=== PATIENT | female | born 1975 | race Caucasian/White ===

== ENCOUNTER 2016-12-16 11:17 | Inpatient (IN) | payer BC ==
[2016-12-16 12:29] LABS: Urine Bilirubin Negative (Negative); Urine Glucose Negative (Negative); Urine Nitrite Negative (Negative)
[2016-12-16 12:38] LABS: Hematocrit 38 % (35-47); Hemoglobin 12.7 g/dl (12.0-16.0); Mean Corpuscular HGB Conc 33 g/dl (31-36); Mean Corpuscular Hemoglobin 30 pg (27-31); Mean Corpuscular Volume 91 fL (80-97); Mean Platelet Volume 8 um3 (7.4-10.4); Red Blood Count 4.21 10^6/ul (4.0-5.4); Red Cell Distribution Width 13 % (10.5-15); White Blood Count 7.8 10^3/ul (3.5-10.8)
[2016-12-16 12:51] LABS: ALT 28 U/L (7-52); AST 25 U/L (13-39); Alkaline Phosphatase 78 U/L (34-104); Anion Gap 6 mmol/L (2-11); BUN/Creatinine Ratio 14.7 (8-20); Blood Urea Nitrogen 15 mg/dL (6-24); CO2 Carbon Dioxide 28 mmol/L (22-32); Calcium 9.1 mg/dL (8.6-10.3); Chloride 100 mmol/L (101-111); EGFR African American 77.2 (>60); Globulin 3.3 g/dL (2-4); Glucose 82 mg/dL (70-100); Potassium 3.8 mmol/L (3.5-5.0); Sodium 134 mmol/L (133-145); Total Protein 7.3 g/dL (6.4-8.9)
[2016-12-16 12:53] LABS: Acetaminophen < 15 mcg/mL; Alcohol < 10 mg/dL (<10); Salicylate < 2.50 mg/dL (<30)
[2016-12-16 12:54] LABS: Benzodiazepine Urine Screen None Detected (None Detect)
[2016-12-16 13:03] LABS: TSH (Thyroid Stimulating Horm) 3.92 mcIU/mL (0.34-5.60)
[2016-12-16] MEDS ORDERED: Al Hydrox/Mg Hydrox/Simet LIQ* 30 ML UDC PO PRN (16:18)
[2016-12-16] MEDS ORDERED: Acetaminophen TAB* 325 MG PO PRN (16:18)
[2016-12-16] MEDS: oxyCODONE/Acetamin 5/325 MG* TAB PO PRN (18:18)
[2016-12-16] MEDS: LORazepam TAB(*) 0.5 MG PO PRN (20:06)
[2016-12-16] MEDS ORDERED: Baclofen TAB* 10 MG PO PRN (21:00)
[2016-12-16] MEDS ORDERED: Zolpidem TAB* 10 MG PO SCH (21:00)
--- NOTE | 2016-12-16 23:00 | ED ---
Klaudia Pearson Erika, scribed for Ankit Patino MD on 12/16/16 at 1711 . Psychiatric Complaint - HPI Summary HPI Summary: Patient is a 41-year-old female presenting to the ED with a CC of depression. Patient reports that for the past 1-2 months, she has had increasing insomnia, loss of appetite, and episodes of night-eating - she states she has been waking up at night and binge eating. Patient states her Premarin was increased a few weeks ago, and she attributes her increasing depression to hormone fluctuations. Patient was seen by her PCP today who was concerned so recommended she come to the ED. Pt denies SI or plan. - History Of Current Complaint Chief Complaint: EDMentalHealth Time Seen by Provider: 12/16/16 11:40 Hx Obtained From: Patient Onset/Duration: Gradual Onset, Lasting Weeks, Still Present Timing: Constant Severity Initially: Mild Severity Currently: Moderate Character: Depressed Aggravating Factor(s): Recent Stress, Other - Premarin increase Alleviating Factor(s): Nothing Associated Signs And Symptoms: Positive: Sleep Disturbance, Appetite Change Related History: Positive For: Prior Psychiatric Issues Has Suicidal: Denies: Thoughts, With A Plan - Allergies/Home Medications Allergies/Adverse Reactions: Allergies Allergy/AdvReac Type Severity Reaction Status Date / Time Codeine Allergy Hives Verified 05/06/16 14:28 NSAIDs Allergy to protect Verified 05/06/16 14:28 kidney, per Dr Sagastume Penicillins Allergy Difficulty Verified 05/06/16 14:28 Breathing Home Medications: Home Medications Baclofen TAB* [Lioresal TAB*] 5 mg PO BEDTIME PRN 12/16/16 [History Confirmed ] Cyanocobalamin TAB* [Vitamin B12 TAB*] 1,000 mcg PO DAILY 12/16/16 [History Confirmed 12/16/16] LORazepam TAB(*) [Ativan 0.5 MG TAB (*)] 0.5 - 1 mg PO Q8H PRN 12/16/16 [ History Confirmed 12/16/16] Multivitamins/Minerals TAB* [Theragran/minerals TAB*] 1 tab PO DAILY 12/16/16 [ History Confirmed 12/16/16] Sertraline* [Zoloft*] 150 mg PO DAILY 12/16/16 [History Confirmed 12/16/16] oxyCODONE/Acetamin 5/325 MG* [Percocet 5/325 TAB*] 1 tab PO Q8H PRN 12/16/16 [ History Confirmed 12/16/16] PMH/Surg Hx/FS Hx/Imm Hx Endocrine/Hematology History: Denies: Hx Anticoagulant Therapy, Hx Diabetes, Hx Thyroid Disease Cardiovascular History: Denies: Hx Hypertension, Hx Pacemaker/ICD Respiratory History: Denies: Hx Asthma, Hx Chronic Obstructive Pulmonary Disease (COPD) GI History: Reports: Hx Ulcer - Questionable Denies: Other GI Disorders History: Reports: Hx Renal Disease - one kidney, Other Problems/Disorders - BORN WITH SOLITARY KIDNEY Sensory History: Denies: Hx Hearing Aid Neurological History: Denies: Hx Dementia, Hx Seizures Psychiatric History: Denies: Hx Panic Disorder, Hx Substance Abuse - Surgical History Surgery Procedure, Year, and Place: hysterectomy, 2 c-sections, hand surg r hand x's 2 - Immunization History Date of Tetanus Vaccine: [facility] Date of Influenza Vaccine: [facility] Infectious Disease History: Denies: Hx Clostridium Difficile, Hx Hepatitis, Hx Human Immunodeficiency Virus (HIV), Hx Shingles, Hx Tuberculosis, History Other Infectious Disease, Traveled Outside the [place] in Last 30 Days - Family History Known Family History: Positive: Cardiac Disease, Hypertension - Social History Alcohol Use: Rare Hx Substance Use: Yes Substance Use Type: Reports: Marijuana Substance Use Comment - Amount & Last Used: occasional Hx Tobacco Use: Yes Smoking Status (MU): Former Smoker Have You Smoked in the Last Year: Yes Review of Systems Gastrointestinal: Other - binge eating, loss of appetite Psychological: Other - difficulty sleeping Positive: Depressed All Other Systems Reviewed And Are Negative: Yes Physical Exam Triage Information Reviewed: Yes Vital Signs On Initial Exam: Initial Vitals Temp Pulse Resp BP Pulse Ox 98.1 F 86 20 136/74 99 12/16/16 11:22 12/16/16 11:22 12/16/16 11:22 12/16/16 11:22 12/16/16 11:22 Vital Signs Reviewed: Yes Appearance: Positive: Well-Appearing, No Pain Distress Skin: Positive: Warm, Skin Color Reflects Adequate Perfusion, Dry Head/Face: Positive: Normal Head/Face Inspection Eyes: Positive: Normal ENT: Positive: Normal ENT inspection Neck: Positive: Supple, Nontender Respiratory/Lung Sounds: Positive: Clear to Auscultation, Breath Sounds Present Cardiovascular: Positive: RRR Abdomen Description: Positive: Nontender, Soft Bowel Sounds: Positive: Present Musculoskeletal: Positive: Normal Neurological: Positive: Normal Psychiatric: Positive: Affect/Mood Appropriate - [place] Coma Scale Coma Scale Total: 15 Diagnostics - Vital Signs Vital Signs Temp Pulse Resp BP Pulse Ox 12/16/16 14:07 99.0 F 84 16 130/67 94 12/16/16 11:34 98.1 F 86 20 136/74 99 12/16/16 11:22 98.1 F 86 20 136/74 99 - Laboratory Lab Results: Lab Results 12/16/16 12/16/16 12/16/16 Range/Units 11:43 11:43 12:00 WBC 7.8 (3.5-10.8) 10^3/ul RBC 4.21 (4.0-5.4) 10^6/ul Hgb 12.7 (12.0-16.0) g/dl Hct 38 (35-47) % MCV 91 (80-97) fL MCH 30 (27-31) pg MCHC 33 (31-36) g/dl RDW 13 (10.5-15) % Plt Count 222 (150-450) 10^3/ul MPV 8 (7.4-10.4) um3 Neut % (Auto) 64.0 (38-83) % Lymph % (Auto) 23.4 L (25-47) % [place] % (Auto) 7.9 (1-9) % Eos % (Auto) 4.0 (0-6) % Baso % (Auto) 0.7 (0-2) % Absolute Neuts (auto) 5.0 (1.5-7.7) 10^3/ul Absolute Lymphs (auto) 1.8 (1.0-4.8) 10^3/ul Absolute Monos (auto) 0.6 (0-0.8) 10^3/ul Absolute Eos (auto) 0.3 (0-0.6) 10^3/ul Absolute Basos (auto) 0.1 (0-0.2) 10^3/ul Absolute Nucleated RBC 0 10^3/ul Nucleated RBC % 0 Sodium (133-145) mmol/L Potassium (3.5-5.0) mmol/L Chloride (101-111) mmol/L Carbon Dioxide (22-32) mmol/L Anion Gap (2-11) mmol/L BUN (6-24) mg/dL Creatinine (0.51-0.95) mg/dL Est GFR ( Amer) (>60) Est GFR (Non-Af Amer) (>60) BUN/Creatinine Ratio (8-20) Glucose (70-100) mg/dL Calcium (8.6-10.3) mg/dL Total Bilirubin (0.2-1.0) mg/dL AST (13-39) U/L ALT (7-52) U/L Alkaline Phosphatase (34-104) U/L Total Protein (6.4-8.9) g/dL Albumin (3.2-5.2) g/dL Globulin (2-4) g/dL Albumin/Globulin Ratio (1-3) TSH (0.34-5.60) mcIU/mL Urine Color Yellow Urine Appearance Clear Urine pH 5.0 (5-9) Ur Specific [place] 1.015 (1.010-1.030) Urine Protein Negative (Negative) Urine Ketones Negative (Negative) Urine Blood Negative (Negative) Urine Nitrate Negative (Negative) Urine Bilirubin Negative (Negative) Urine Urobilinogen Negative (Negative) Ur Leukocyte Esterase Negative (Negative) Urine Glucose Negative (Negative) Salicylates (<30) mg/dL Urine Opiates Screen Presumptive positive H (None Detect) Acetaminophen mcg/mL Ur Barbiturates Screen None detected (None Detect) Ur Phencyclidine Scrn None detected (None Detect) Ur Amphetamines Screen None detected (None Detect) U Benzodiazepines Scrn None detected (None Detect) Urine Cocaine Screen None detected (None Detect) U Cannabinoids Screen None detected (None Detect) Serum Alcohol (<10) mg/dL 12/16/16 Range/Units 12:00 WBC (3.5-10.8) 10^3/ul RBC (4.0-5.4) 10^6/ul Hgb (12.0-16.0) g/dl Hct (35-47) % MCV (80-97) fL MCH (27-31) pg MCHC (31-36) g/dl RDW (10.5-15) % Plt Count (150-450) 10^3/ul MPV (7.4-10.4) um3 Neut % (Auto) (38-83) % Lymph % (Auto) (25-47) % [place] % (Auto) (1-9) % Eos % (Auto) (0-6) % Baso % (Auto) (0-2) % Absolute Neuts (auto) (1.5-7.7) 10^3/ul Absolute Lymphs (auto) (1.0-4.8) 10^3/ul Absolute Monos (auto) (0-0.8) 10^3/ul Absolute Eos (auto) (0-0.6) 10^3/ul Absolute Basos (auto) (0-0.2) 10^3/ul Absolute Nucleated RBC 10^3/ul Nucleated RBC % Sodium 134 (133-145) mmol/L Potassium 3.8 (3.5-5.0) mmol/L Chloride 100 L (101-111) mmol/L Carbon Dioxide 28 (22-32) mmol/L Anion Gap 6 (2-11) mmol/L BUN 15 (6-24) mg/dL Creatinine 1.02 H (0.51-0.95) mg/dL Est GFR ( Amer) 77.2 (>60) Est GFR (Non-Af Amer) 60.0 (>60) BUN/Creatinine Ratio 14.7 (8-20) Glucose 82 (70-100) mg/dL Calcium 9.1 (8.6-10.3) mg/dL Total Bilirubin 0.30 (0.2-1.0) mg/dL AST 25 (13-39) U/L ALT 28 (7-52) U/L Alkaline Phosphatase 78 (34-104) U/L Total Protein 7.3 (6.4-8.9) g/dL Albumin 4.0 (3.2-5.2) g/dL Globulin 3.3 (2-4) g/dL Albumin/Globulin Ratio 1.2 (1-3) TSH 3.92 (0.34-5.60) mcIU/mL Urine Color Urine Appearance Urine pH (5-9) Ur Specific [place] (1.010-1.030) Urine Protein (Negative) Urine Ketones (Negative) Urine Blood (Negative) Urine Nitrate (Negative) Urine Bilirubin (Negative) Urine Urobilinogen (Negative) Ur Leukocyte Esterase (Negative) Urine Glucose (Negative) Salicylates < 2.50 (<30) mg/dL Urine Opiates Screen (None Detect) Acetaminophen < 15 mcg/mL Ur Barbiturates Screen (None Detect) Ur Phencyclidine Scrn (None Detect) Ur Amphetamines Screen (None Detect) U Benzodiazepines Scrn (None Detect) Urine Cocaine Screen (None Detect) U Cannabinoids Screen (None Detect) Serum Alcohol < 10 (<10) mg/dL Result Diagrams: 12/16/16 12:00 12/16/16 12:00 Lab Statement: Any lab studies that have been ordered have been reviewed, and results considered in the medical decision making process. Course/Dx - Course Course Of Treatment: Medically cleared for MHU evaluation at 13:32. - Differential Dx/Clinical Impression Provider Diagnosis: Depression Discharge - Discharge Plan Condition: Stable [place] [place] The documentation as recorded by the Klaudia pierce Erika accurately reflects the service I personally performed and the decisions made by , Ankit Patino MD.
[2016-12-17] MEDS: oxyCODONE/Acetamin 5/325 MG* TAB PO PRN ×2 (08:41→16:59)
[2016-12-17] MEDS: Conjugated Estrogens TAB* 0.3 MG TAB PO SCH (08:42)
[2016-12-17] MEDS: Cyanocobalamin TAB* 500 MCG PO SCH (08:42)
[2016-12-17] MEDS: Vitamin THERAPEUTIC TAB PO SCH (08:42)
[2016-12-17] MEDS: Sertraline* 50 MG TAB PO SCH (08:42)
[2016-12-17] MEDS: LORazepam TAB(*) 0.5 MG PO PRN ×2 (09:40→20:14)
[2016-12-17] MEDS ORDERED: hydrOXYzine HCL TAB* 10 MG PO PRN (11:51)
[2016-12-17] MEDS ORDERED: diPHENhydraMINE PO* 50 MG PO PRN (11:51)
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
--- NOTE | 2016-12-17 13:33 | PN ---
MHU: Group Therapy Note - Service Type Service Type: 25077 Group Psychotherapy - Cognitive Behavioral Group Therapy ( CBT):Patient was attentive and participatory in CBT programming this morning, and remained in good behavioral control. Patient expressed positive insights regarding relevant treatment interventions and goals.
[2016-12-17] MEDS ORDERED: Nicotine Inhaler* 10 MG AMP INH PRN (17:46)
[2016-12-17] MEDS ORDERED: Zolpidem TAB* 10 MG PO ONE (23:00)
[2016-12-18] MEDS: oxyCODONE/Acetamin 5/325 MG* TAB PO PRN ×2 (03:04→11:07)
[2016-12-18 07:55] VITALS: BP 116/72
[2016-12-18] MEDS: Cyanocobalamin TAB* 500 MCG PO SCH (08:24)
[2016-12-18] MEDS: Vitamin THERAPEUTIC TAB PO SCH (08:26)
[2016-12-18] MEDS: Sertraline* 50 MG TAB PO SCH (08:26)
[2016-12-18] MEDS: Conjugated Estrogens TAB* 0.3 MG TAB PO SCH (08:27)
[2016-12-18] MEDS: LORazepam TAB(*) 0.5 MG PO PRN (10:00)
--- NOTE | 2016-12-18 14:05 | DS ---
Subjective - Subjective Service Types: [address] [facility] Day Mgmt simple under 30 min Discharge Date: 12/18/16 Subjective: Rebecca reported doing much better: "I needed this!!" She notes big reduction in distress, dysphoria, and anxiety. She slept again, and feels recovered. She declined further care, and requested release, affirming she is safe, free of any ideas of self harm, and back to coping. She intends to continue counseling at her PMD office and declines referrals to mental health clinic or substance counseling. She says family is aware of the way she uses pills an is monitoring it, and says that's adequate. She says she sees no barriers to routine care or emergency help if needed. She agreed to avoid Ativan and asked for a Rx. of hydroxyzine for anxiety. Objective - Appearance Appearance: Obese Hygiene: Normal Grooming: Well Kept - Behavior Psychomotor Activities: Normal - Attitude and Relatedness Attitude and Relatedness: Superficially Cooperative Eye Contact: Good - Speech Quality: Unpressured Latencies: Normal Quantity: Appropriate - Mood Patient's Decription of Mood: "Good" - Affect Observed Affect: Non-labile Affect Consistent with: Euthymia - Thought Process Patient's Thought Process: Coherent, Goal Directed Thought Content: No Passive Wish, No Suicidal Planning, No Homicidal Ideation, No Paranoid Ideation - Sensorium Experiencing Hallucinations: No, Sensorium is Clear - Level of Consciousness Level of Consciousness: Alert - Impulse Control Impulse Control: Intact - Insight and Judgement Insight and Judgement: Fair Treatment Course & Assessment Clinical Course & Impression: Third psychiatric hospitalization for this 41-year-old female with chronic vulnerability to mood instability and anxiety, chronic reliance on narcotic analgesics and apparent periodic reliance of benzodiazepines. She presented in distress with impaired coping, elevated anxiety, dysphoria, mood lability, and some urges to self-harm in a setting of insomnia and recent conflict with her . 12/18/16 Clear for release. Rebecca stabilized here. Clinically she had rapid and progressive improvement. Her acute distress and coping impairment are corrected, anxiety and dysphoria much lower. She has been safe on checks and consistently free of suicidal ideation or ongoing self harm urges. Her crisis appears to have been in the context of relational stress, insomnia, with some medication and/or substance induced effect.. Medication management continued the outpatient medication regimen, but stops Ativan based on unacceptable risk profile (I intended to stop it as inpatient, but inadvertently left a PRN order active and pt. requested and received a dose 5/5 in a.m.) We provided hydroxyzine PRN anxiety. We planned psychological testing but Rebecca found the MMPI anxiety provoking. She had little acknowledgment of substance abuse and did not accept recommendation to make it a focus of treatment. She capably requests release. Risk concern centered on self harm ideation and is corrected. Rebecca is at chronic above average risk for suicide based on her conditions, but at this time acute risk is assessed as low based on her benign behavior and ideation, low symptom burden, and absence of current impairment. Inappropriate medication use or illicit drug use can increase acute risk. Clear for Discharge: Adequate Clinical Respons, Acceptable Safety Profile, Low Utility of Inpt Care Inpatient DSM-IV Dx: Depressed, anxiety state not otherwise specified, opioid use disorder not otherwise specified, benzodiazepine use disorder not otherwise specified. Discharge Planning - Discharge Planning Discharge Plan: Outpatient Follow Up Recommendations for Continuing Care: Medication Management, Substance Abuse Counseling, Primary Care Followup, Specialty Followup - consider Pain Management and Substance abuse treatment referrals Medications: Current Medications Baclofen (Lioresal Tab*) 5 mg PO BEDTIME PRN PRN Reason: SPASMS-MUSCLE Last Admin: 12/16/16 21:13 Dose: 5 mg Cyanocobalamin (Vitamin B12 Tab*) 1,000 mcg PO DAILY [facility] Last Admin: 12/18/16 08:24 Dose: 1,000 mcg Estrogens Conjugated (Premarin Tab*) 0.9 mg PO DAILY [facility] Last Admin: 12/18/16 08:27 Dose: 0.9 mg Hydroxyzine HCl (Atarax Tab*) 10 mg PO Q6H PRN PRN Reason: ANXIETY Multivitamins (Theragran Tab*) 1 tab PO DAILY [facility] Last Admin: 12/18/16 08:26 Dose: 1 tab Nicotine (Nicotine Inhaler*) 10 mg INH Q2H PRN PRN Reason: CRAVING Oxycodone/Acetaminophen (Percocet 5/325 Tab*) 1 tab PO Q8H PRN PRN Reason: PAIN Last Admin: 12/18/16 11:07 Dose: 1 tab Sertraline HCl (Zoloft*) 200 mg PO DAILY [facility] Last Admin: 12/18/16 08:26 Dose: 150 mg Discharge Planning: Prescriptions provided for discharge [x] Yes hydroxyzine Follow up care details as per social work arrangements. Patient response to discharge plan: [x] eager for discharge [] agreeable with discharge plan [] ambivalent about discharge [] disagrees with discharge today
[2016-12-18] MEDS ORDERED: Sertraline* 100 MG TAB PO SCH (14:26)
== END 2016-12-18 15:05 | disposition home or self-care (01) | DRG 754 ==
LOC: ED 11:17 → BSU 17:38
PROVIDERS: ADMIT Psychiatry & Neurology Psychiatry; ATTEND Psychiatry & Neurology Psychiatry
PROC: GZHZZZZ Group Psychotherapy (ICD-10-PCS; principal; 2016-12-17)
PROC: GZ58ZZZ Individual Psychotherapy, Cognitive-Behavioral (ICD-10-PCS; 2016-12-17)
DX: F32.9 Major depressive disorder, single episode, unspecified (principal); Q60.0 Renal agenesis, unilateral; F41.9 Anxiety disorder, unspecified; F11.90 Opioid use, unspecified, uncomplicated; F13.90 Sedative, hypnotic, or anxiolytic use, unspecified, uncomplicated; G47.00 Insomnia, unspecified; Z88.6 Allergy status to analgesic agent; Z88.0 Allergy status to penicillin; Z88.8 Allergy status to other drugs, medicaments and biological substances; Z90.710 Acquired absence of both cervix and uterus; Z82.49 Family history of ischemic heart disease and other diseases of the circulatory system; Z87.891 Personal history of nicotine dependence; Z72.89 Other problems related to lifestyle; G89.29 Other chronic pain; M54.9 Dorsalgia, unspecified; E66.9 Obesity, unspecified; Z68.34 Body mass index [BMI] 34.0-34.9, adult
CPT/HCPCS: 36415; 80053; 80307; 80320; 80329; 81003; 84443; 85025; 90853; 99222; 99238; A9270-GY; G0480

== ENCOUNTER 2017-08-05 16:41 | Emergency (ER) | payer BC ==
[2017-08-05] MEDS ORDERED: oxyCODONE/Acetamin 5/325 MG* TAB PO ONE (17:34)
--- NOTE | 2017-08-05 18:19 | RAD ---
INDICATION: Right calf and swelling. COMPARISON: None TECHNIQUE: Duplex interrogation of the Lowerextremity was performed. FINDINGS: Deep veins: The common femoral, great saphenous, profunda femoris, proximal, mid, and distal deep femoral, popliteal, posterior tibial, and peroneal veins are patent. There is normal compressibility, augmentation, and phasic flow. Superficial veins: There are no findings of superficial thrombophlebitis. Popliteal fossa:There is no evidence of a popliteal cyst. Soft tissues:There are no soft tissue abnormalities. IMPRESSION: Normal examination. No evidence of deep venous thrombosis
[2017-08-05 18:47] VITALS: BP 125/85
--- NOTE | 2017-08-21 00:49 | ED ---
Hailey Pearson Gabriel, scribed for Ruddy Freitas MD on 08/05/17 at 1729 . Lower Extremity - HPI Summary HPI Summary: This patient is a 42 year old F presenting to [facility] with a chief complaint of RLE pain after being sent from her PCP. The patient rates the pain 9/10 in severity. Patient denies injury and swelling. Patient states she had not been any recent long trips - History of Current Complaint Chief Complaint: EDExtremityLower Stated Complaint: RT LOWER EXTREMITY PAIN & SWELLING Time Seen by Provider: 08/05/17 17:23 Hx Obtained From: Patient Mechanism Of Injury: Other - none Onset/Duration: Still Present Severity Initially: Moderate Severity Currently: Moderate Pain Intensity: 9 Pain Scale Used: 0-10 Numeric Timing: Constant Location: Is Diffuse - in RLE - Allergies/Home Medications Allergies/Adverse Reactions: Allergies Allergy/AdvReac Type Severity Reaction Status Date / Time Codeine Allergy Hives Verified 08/05/17 16:58 NSAIDs Allergy to protect Verified 08/05/17 16:58 kidney, per Dr Sagastume Penicillins Allergy Difficulty Verified 08/05/17 16:58 Breathing PMH/Surg Hx/FS Hx/Imm Hx Previously Healthy: No Endocrine/Hematology History: Denies: Hx Anticoagulant Therapy, Hx Diabetes, Hx Thyroid Disease Cardiovascular History: Denies: Hx Hypertension, Hx Pacemaker/ICD Respiratory History: Denies: Hx Asthma, Hx Chronic Obstructive Pulmonary Disease (COPD) GI History: Reports: Hx Ulcer - Questionable Denies: Other GI Disorders History: Reports: Hx Renal Disease - one kidney, Other Problems/Disorders - BORN WITH SOLITARY KIDNEY Musculoskeletal History: Reports: Hx Arthritis - Pt. reports arthritis in the lower back, Hx Back Problems - Chronic Back Pain Sensory History: Reports: Hx Contacts or Glasses Denies: Hx Hearing Aid Opthamlomology History: Reports: Hx Contacts or Glasses Neurological History: Denies: Hx Dementia, Hx Seizures Psychiatric History: Reports: Hx Anxiety, Hx Depression, Hx Inpatient Treatment , Hx Community Mental Health Tx Denies: Hx Eating Disorder, Hx Panic Disorder, Hx Suicide Attempt, Hx of Violent Episodes Against Others, Hx Substance Abuse - Surgical History Surgery Procedure, Year, and Place: hysterectomy, 2 c-sections, hand surg r hand x's 2 - Immunization History Date of Tetanus Vaccine: ukn Date of Influenza Vaccine: ukn Infectious Disease History: No Infectious Disease History: Denies: Hx Clostridium Difficile, Hx Hepatitis, Hx Human Immunodeficiency Virus (HIV), Hx Shingles, Hx Tuberculosis, History Other Infectious Disease, Traveled Outside the [place] in Last 30 Days - Family History Known Family History: Positive: Cardiac Disease, Hypertension - Social History Alcohol Use: Rare Hx Substance Use: Yes Substance Use Type: Reports: Marijuana Substance Use Comment - Amount & Last Used: occasional Hx Tobacco Use: Yes Smoking Status (MU): Former Smoker Type: Cigarettes Have You Smoked in the Last Year: No Review of Systems Negative: Fever Positive: Other - RLE pain . Negative: Edema All Other Systems Reviewed And Are Negative: Yes Physical Exam - Summary Physical Exam Summary: Appearance: Well appearing, no pain distress Skin: warm, dry, reflects adequate perfusion Head/face: normal Eyes: EOMI, ROBERT ENT: normal Neck: supple, non-tender Respiratory: CTA, breath sounds present Cardiovascular: RRR, pulses symmetrical Abdomen: non-tender, soft Bowel: present Musculoskeletal: strength/ROM intact. Positive homans sign, tenderness in upper calf without redness or palpable cord Neuro: normal, sensory motor intact, A&Ox3 Triage Information Reviewed: Yes Vital Signs On Initial Exam: Initial Vitals Temp Pulse Resp BP Pulse Ox 97.4 F 76 18 149/100 97 08/05/17 16:55 08/05/17 16:55 08/05/17 16:55 08/05/17 16:55 08/05/17 16:55 Vital Signs Reviewed: Yes Diagnostics - Vital Signs Vital Signs Temp Pulse Resp BP Pulse Ox 08/05/17 16:55 97.4 F 76 18 149/100 97 - Laboratory Lab Statement: Any lab studies that have been ordered have been reviewed, and results considered in the medical decision making process. - Additional Comments Diagnostic Additional Comments: Venous Doppler study reveals, per radiologist, Normal examination. No evidence of deep venous thrombosis ED physician has reviewed this radiology report. Lower Extremity Course/Dx - Course Course Of Treatment: NL vasc exam. Appears musculoskeletal. Tx symptomatically. - Diagnoses Provider Diagnoses: Pain in left lower leg Discharge - Discharge Plan Condition: Good Disposition: HOME Patient Education Materials: Leg Pain (ED) Referrals: Edd Patterson MD [Primary Care Provider] - Additional Instructions: Ice, stretching exercises. Use your prescribed flexeril or percocet. See your chiropractor in the morning for treatment. Return with fever, redness, worse or other concerns as discussed. The documentation as recorded by the Hailey pierce Gabriel accurately reflects the service I personally performed and the decisions made by me, Ruddy Freitas MD.
== END 2017-08-05 18:47 | disposition home or self-care (01) ==
LOC: ED 16:41
DX: M79.662 Pain in left lower leg (principal); Z87.891 Personal history of nicotine dependence; Z88.0 Allergy status to penicillin
CPT/HCPCS: 99282; A9270-GY

== ENCOUNTER 2019-04-03 16:40 | Emergency (ER) | payer BC ==
[2019-04-03 16:58] VITALS: BP 134/89
[2019-04-03] MEDS ORDERED: cefTRIAXone VIAL(*) 1,000 MG VIAL IM ONE (17:48)
[2019-04-03] MEDS ORDERED: Lidocaine 1% MPF ** 5 ML VIAL IM ONE (17:50)
--- NOTE | 2019-04-03 18:03 | UC ---
Abdominal Pain Female HPI - HPI Summary HPI Summary: 43 yo female with UTI symptoms x days now with left flank pain intermittent feels like when she had pyelo has only one kidney no f/c no n/v no vaginal d/c - History of Current Complaint Chief Complaint: UCGU Stated Complaint: FLANK PAIN Time Seen by Provider: 04/03/19 17:30 Hx Obtained From: Patient Onset/Duration: Gradual Onset, Lasting Days Timing: Constant Severity Initially: Mild Severity Currently: Moderate Pain Intensity: 7 - intermittent Pain Scale Used: 0-10 Numeric Location: Other - left flank Character: Colicy Aggravating Factor(s): Nothing Alleviating Factor(s): Nothing Associated Signs and Symptoms: Positive: Urinary Symptoms. Negative: Diaphoresis, Fever, Cough, Chest Pain, Dizzy, Constipation, Blood in Stool, Decreased Appetite, Vaginal Bleeding, Vaginal Discharge, Nausea, Vomiting, Diarrhea Allergies/Adverse Reactions: Allergies Allergy/AdvReac Type Severity Reaction Status Date / Time codeine Allergy Hives Verified 04/03/19 16:59 NSAIDS (Non-Steroidal Allergy See Comment Verified 04/03/19 16:59 Anti-Inflamma Penicillins Allergy Difficulty Verified 04/03/19 16:59 Breathing Home Medications: Home Medications ALPRAZolam [Xanax] 1 tab PO DAILY PRN 04/03/19 [History Confirmed 04/03/19] Methylphenidate HCl [Methylphenidate ER] 1 tab PO DAILY 04/03/19 [History Confirmed 04/03/19] Tizanidine HCl 1 tab PO DAILY PRN 04/03/19 [History Confirmed 04/03/19] Topiramate [Trokendi Xr] 100 mg PO BID 04/03/19 [History Confirmed 04/03/19] PMH/Surg Hx/FS Hx/Imm Hx Previously Healthy: Yes GI/ History: Kidney Stones, Other - pyelo Other History Of: Negative For: Anticoagulant Therapy - Surgical History Surgical History: Yes Surgery Procedure, Year, and Place: hysterectomy, 2 c-sections, hand surg r hand x's 2 - Family History Known Family History: Positive: Cardiac Disease, Hypertension - Social History Alcohol Use: Rare Alcohol Amount: 3-5 glasses of wine per week Substance Use Type: Marijuana Substance Use Comment - Amount & Last Used: occasional Smoking Status (MU): Light Every Day Tobacco Smoker Type: Cigarettes Amount Used/How Often: less than 10 a day Have You Smoked in the Last Year: No When Did the Patient Quit Smoking/Using Tobacco: September 2015 Household Exposure Type: Cigarettes - Immunization History Most Recent Influenza Vaccination: 2013 Most Recent Tetanus Shot: UP TO DATE Most Recent Pneumonia Vaccination: Never Review of Systems All Other Systems Reviewed And Are Negative: Yes Constitutional: Positive: Negative Skin: Positive: Negative Eyes: Positive: Negative ENT: Positive: Negative Respiratory: Positive: Negative Gastrointestinal: Positive: Other - left flank pain Genitourinary: Positive: Dysuria, Frequency Motor: Positive: Negative Neurovascular: Positive: Negative Musculoskeletal: Positive: Negative Neurological: Positive: Negative Psychological: Positive: Negative Physical Exam Triage Information Reviewed: Yes Appearance: Well-Appearing, No Pain Distress, Well-Nourished Vital Signs: Initial Vital Signs Temp 96.8 F 04/03/19 16:52 Pulse 73 04/03/19 16:52 Resp 18 04/03/19 16:52 BP 134/89 04/03/19 16:52 Pulse Ox 97 04/03/19 16:52 Vital Signs Reviewed: Yes Eyes: Positive: Conjunctiva Clear ENT: Positive: Hearing grossly normal. Negative: Nasal congestion, Nasal drainage, Trismus, Muffled voice, Hoarse voice Dental Exam: Normal Neck: Positive: Supple, Nontender Respiratory: Positive: Lungs clear, Normal breath sounds, No respiratory distress, No accessory muscle use Cardiovascular: Positive: RRR, No Murmur, Pulses Normal Abdomen Description: Positive: Nontender, No Organomegaly, CVA Tenderness (L) Bowel Sounds: Positive: Present Musculoskeletal: Positive: ROM Intact, No Edema Neurological: Positive: Alert Psychological Exam: Normal Skin Exam: Normal Diagnostics - Laboratory Lab Results: UA (-) Spec Grav <1.005 Re-Evaluation - Re-Evaluation First Eval Change: Unchanged Abd Pain Female Course/Dx - Course Course Of Treatment: Given history will cover with antibiotics for possible pyelo - Differential Dx/Diagnosis Provider Diagnosis: Left flank pain Discharge - Sign-Out/Discharge Documenting (check all that apply): Patient Departure All imaging exams completed and their final reports reviewed: No Studies - Discharge Plan Condition: Stable Disposition: HOME Prescriptions: Cephalexin CAP* [Keflex CAP*] 500 mg PO TID #21 cap Patient Education Materials: Flank Pain (ED) Referrals: Jackie Bell MD [Primary Care Provider] - 2 Days Additional Instructions: a urine culture is pending due to your history and exam we will treat you for a kidney infection to ER for fever>101, vomiting or increased pain RECHECK IN 2 days if not better (your MD, here or ER) - Billing Disposition and Condition Condition: STABLE Disposition: Home
--- NOTE | 2019-04-05 16:47 | UC ---
- Progress Note Progress Note: urine culture final - neg no change edgard 04/05/19 Course/Dx - Diagnoses Provider Diagnoses: Left flank pain Discharge ED - Sign-Out/Discharge Documenting (check all that apply): Post-Discharge Follow Up All imaging exams completed and their final reports reviewed: No Studies - Discharge Plan Condition: Stable Disposition: HOME Prescriptions: Cephalexin CAP* [Keflex CAP*] 500 mg PO TID #21 cap Patient Education Materials: Flank Pain (ED) Referrals: Jackie Bell MD [Primary Care Provider] - 2 Days Additional Instructions: a urine culture is pending due to your history and exam we will treat you for a kidney infection to ER for fever>101, vomiting or increased pain RECHECK IN 2 days if not better (your MD, here or ER) - Billing Disposition and Condition Condition: STABLE Disposition: Home
== END 2019-04-03 18:40 | disposition home or self-care (01) ==
LOC: UCEAST 16:40
DX: R10.9 Unspecified abdominal pain (principal); F17.210 Nicotine dependence, cigarettes, uncomplicated; Z88.5 Allergy status to narcotic agent; Z88.0 Allergy status to penicillin
CPT/HCPCS: 81003; 87086; 96372; 99212; G0463; J0696

== ENCOUNTER 2019-08-05 15:23 | Emergency (ER) | payer BC ==
--- NOTE | 2019-08-05 15:45 | ED ---
Back Pain - HPI Summary HPI Summary: This pt is a 44 y/o female presenting to [facility] c/o acute on chronic lower back pain today s/p fall. Pt reports she was outside when she slipped and fell forward on the snow. Denies LOC. Pt then continued to work outside for 1 hour after the fall. After she finished she went inside her home and began to feel her feet became painful and then her legs became numb at around 1330 today. Pt then went to lay down and took Naproxen and Percocet. Currently she notes lower back pain, bilateral leg tingling and numbness, as well as right groin pain radiating down her leg up to the inner side of her thigh. Pt reports right hip pain and lower back pain aggravated with ambulation. Denies fever, chills, urinary or bowel incontinence, saddle anesthesia. Denies hx of DM. No hx of IVDU. PMHx: left sided sciatica, born with 1 kidney. Pt takes Sertraline 200 mg once a day for back pain, topamax 50 mg BID for headache, 0.25 mg Xanax PRN, 5/325 Percocet TID for chronic back pain. Pt admits to smoking cigarettes, occasional alcohol and marijuana use. Allergic to Penicillin (reaction of anaphylaxis) and codeine (reaction of rash). Medications reviewed. Allergies noted. - History of Current Complaint Stated Complaint: BACK PAIN PER PT Time Seen by Provider: 08/05/19 15:34 Hx Obtained From: Patient Onset/Duration: Lasting Minutes, Still Present Onset/Duration: Started Minutes Ago, Still Present Timing: Constant Back Pain Location: Is Discrete @ - lower back Severity Currently: Severe Pain Intensity: 7 Pain Scale Used: 0-10 Numeric Aggravating Symptom(s): Movement Alleviating Symptom(s): Rest Associated Signs And Symptoms: Negative: Fever, Weakness, Numbness, Tingling, Bladder Incontinence, Bowel Incontinence, Other - saddle anesthesia - Allergies/Home Medications Allergies/Adverse Reactions: Allergies Allergy/AdvReac Type Severity Reaction Status Date / Time codeine Allergy Hives Verified 08/05/19 15:43 NSAIDS (Non-Steroidal Allergy See Comment Verified 08/05/19 15:43 Anti-Inflamma Penicillins Allergy Difficulty Verified 08/05/19 15:43 Breathing PMH/Surg Hx/FS Hx/Imm Hx Endocrine/Hematology History: Denies: Hx Anticoagulant Therapy, Hx Diabetes, Hx Thyroid Disease Cardiovascular History: Denies: Hx Hypertension, Hx Pacemaker/ICD Respiratory History: Denies: Hx Asthma, Hx Chronic Obstructive Pulmonary Disease (COPD) GI History: Reports: Hx Ulcer - Questionable Denies: Other GI Disorders History: Reports: Hx Renal Disease - one kidney ( BORN WITH ONE KIDNEY), Other Problems/Disorders - BORN WITH SOLITARY KIDNEY Musculoskeletal History: Reports: Hx Arthritis - Pt. reports arthritis in the lower back, Hx Back Problems - Chronic Back Pain, Other Musculoskeletal History - sciatica on the left Sensory History: Reports: Hx Contacts or Glasses Denies: Hx Hearing Aid Opthamlomology History: Reports: Hx Contacts or Glasses Neurological History: Denies: Hx Dementia, Hx Seizures Psychiatric History: Reports: Hx Anxiety, Hx Depression, Hx Inpatient Treatment , Hx Community Mental Health Tx Denies: Hx Eating Disorder, Hx Panic Disorder, Hx Suicide Attempt, Hx of Violent Episodes Against Others, Hx Substance Abuse - Cancer History Hx Chemotherapy: No Hx Radiation Therapy: No - Surgical History Surgical History: Yes Surgery Procedure, Year, and Place: hysterectomy, 2 c-sections, hand surg r hand x's 2 - Immunization History Date of Tetanus Vaccine: community health Date of Influenza Vaccine: community health Infectious Disease History: No Infectious Disease History: Denies: Hx Clostridium Difficile, Hx Hepatitis, Hx Human Immunodeficiency Virus (HIV), Hx Shingles, Hx Tuberculosis, History Other Infectious Disease, Traveled Outside the in Last 30 Days - Family History Known Family History: Positive: Cardiac Disease, Hypertension - Social History Alcohol Use: Occasionally Alcohol Amount: 3-5 glasses of wine per week Hx Substance Use: Yes Substance Use Type: Reports: Marijuana Substance Use Comment - Amount & Last Used: occasional Hx Tobacco Use: Yes Smoking Status (MU): Light Every Day Tobacco Smoker Type: Cigarettes Amount Used/How Often: less than 10 a day Have You Smoked in the Last Year: No Review of Systems Negative: Fever, Chills Negative: incontinence Musculoskeletal: Other - POSITIVE: lower back pain, right hip pain Neurological: Other - NEGATIVE: saddle anesthesia Positive: Paresthesia - legs, Numbness All Other Systems Reviewed And Are Negative: Yes Physical Exam - Summary Physical Exam Summary: Constitutional: Well-developed, Well-nourished, Alert. Patient lying uncomfortable in the stretcher. Skin: Warm, Dry HENT: Normocephalic; Atraumatic Eyes: Conjunctiva normal Neck: Musculoskeletal ROM normal neck. (-) JVD, (-) Stridor, (-) Tracheal deviation Cardio: Rhythm regular, rate normal, Heart sounds normal; Intact distal pulses; The pedal pulses are 2+ and symmetric. Radial pulses are 2+ and symmetric. (-) Murmur Pulmonary/Chest wall: Effort normal. (-) Respiratory distress, (-) Wheezes, (-) Rales Abd: Soft, (-) tenderness, (-) Distension, (-) Guarding, (-) Rebound Musculoskeletal: Patient with 4+ strength in the left lower extremity and unable to lift right lower extremity due to pain. Sensation is intact. DP/PT pulses intact bilaterally. Lymph: (-) Cervical adenopathy Neuro: Alert, Oriented x3 Psych: Mood and affect Normal Triage Information Reviewed: Yes Vital Signs On Initial Exam: Initial Vitals Temp Pulse Resp BP Pulse Ox 99.6 F 71 16 175/93 100 08/05/19 15:41 08/05/19 15:41 08/05/19 15:41 08/05/19 15:41 08/05/19 15:41 Vital Signs Reviewed: Yes Procedures - Sedation Patient Received Moderate/Deep Sedation with Procedure: No Diagnostics - Vital Signs Vital Signs Temp Pulse Resp BP Pulse Ox 08/05/19 15:41 99.6 F 71 16 175/93 100 - Laboratory Lab Statement: Any lab studies that have been ordered have been reviewed, and results considered in the medical decision making process. Re-Evaluation - Re-Evaluation First Eval Re-Evaluation Time: 16:45 Change: Improved Comment: Pt is feeling slightly better. She is still lying on stretcher. Second Eval Re-Evaluation Time: 17:27 Change: Unchanged Comment: Pt was feeling better after morphine initially and her pain started to come back. Third Eval Re-Evaluation Time: 18:14 Change: Improved Comment: Patient is feeling better. She will attempt to stand up. Fourth Eval Re-Evaluation Time: 18:23 Change: Improved Comment: Patient is ambulating to the bathroom. Back Pain Course/Dx - Course Course Of Treatment: Patient is here with lower back pain on the right that radiates down her leg. Patient has no symptoms of cauda equina or epidural abscess. Patient was given Valium, prednisone with no relief. Patient subsequently given morphine and then Dilaudid with fast improvement. Patient was discharged on Flexeril and lidocaine patches. - Diagnoses Provider Diagnoses: Lower back pain Discharge ED - Sign-Out/Discharge Documenting (check all that apply): Patient Departure - Discharge home - Discharge Plan Condition: Stable Disposition: HOME Prescriptions: Cyclobenzaprine TAB* [Flexeril 10 MG TAB*] 10 mg PO BID PRN #12 tab PRN Reason: back pain Lidocaine PATCH 5%* [Lidoderm 5% Patch*] 1 patch TRANSDERM DAILY 7 Days #7 patch Patient Education Materials: Back Pain (ED) Referrals: Jackie Bell MD [Primary Care Provider] - Additional Instructions: Continue to take your at home pain medications. Take your muscle relaxant as prescribed. Use lidocaine patches. Please follow up with your primary care physician in 1-3 days. PLEASE RETURN TO EMERGENCY DEPARTMENT IF YOU HAVE DIFFICULTY GOING TO THE BATHROOM OR NUMBNESS BETWEEN YOUR VAGINA AND YOUR BUTT. - Billing Disposition and Condition Condition: STABLE Disposition: Home - Attestation Statements Document Initiated by Rodrigoibelli: Yes Documenting Scribe: Carmen Freitas Provider For Whom Rodrigoibe is Documenting (Include Credential): Hima Schneider MD Scribe Attestation: Carmen Pearson, scribed for Hima Schneider MD on 08/05/19 at 1844. Scribe Documentation Reviewed: Yes Provider Attestation: The documentation as recorded by the Carmen pierce accurately reflects the service I personally performed and the decisions made by me, Hima Schneider MD Status of Scribe Document: Viewed
[2019-08-05] MEDS ORDERED: Diazepam TAB(*) 5 MG PO ONE (15:48)
[2019-08-05] MEDS ORDERED: predniSONE TAB* 20 MG PO ONE (15:48)
--- OUTSIDE RECORDS SUMMARY | 2019-08-05 16:32 | XMS REPORT | Continuity of Care Document ---
:1975 External Reference #:[id number] Author Name Jackie Vasquez M.D. (transmitted by agent of provider Simran Goode) Address [address], [place] [address] Care Team Providers Name Role Phone Ladi Vaz NPP - Psych/Mental Care Team Information Processing Tech [facility] Jackie Bell M.D. - Family Medicine Care Team Information Processing Tech Problems Active Problems Provider Date Bipolar II disorder Edd Patterson M.D.,FACP Onset: 02/28/2018 Moderate cigarette smoker (10-19 Edd Patterson M.D.,FACP Onset: 2018 cigs/day) Unilateral agenesis of kidney Edd Patterson M.D.,FACP Onset: 07/23/2017 Note: RT Lumbosacral radiculitis Edd Patterson M.D.,FACP Onset: 02/03/2016 Thoracic and lumbosacral neuritis Sanchez Blackburn M.D. Onset: 07/02/2016 Panic disorder without agoraphobia Sanchez Blackburn M.D. 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, predominantly inattentive type Migraine Edd Patterson M.D.,FACP Onset: 01/14/2018 Note: as child and teen Social History Type Date Description Comments Sex Unknown Tobacco Use Start: Unknown Heavy tobacco smoker (more 15 cigs/day than 10 cigarettes/day) Smoking Status Reviewed: 06/09/19 Heavy tobacco smoker (more 15 cigs/day than 10 cigarettes/day) ETOH Use Consumes 1 glass of wine per week Recreational Drug Use Sporadically uses Marijuana Tobacco Use Start: Unknown Light tobacco smoker (10 or fewer cigarettes/day) Exercise Type/Frequency Exercises rarely Allergies, Adverse Reactions, Alerts Active Allergies Reaction Severity Comments Date Morphine nausea 10/25/2007 Darvocet N-100 depressed mood 10/25/2007 Ultracet gi distress 10/25/2007 Penicillin resp distress 10/25/2007 Claritin-D 06/04/2016 Codeine hives 07/23/2017 Lamotrigine daily headache 06/01/2018 Medications Active Medications SIG Qnty Indications Ordering Date Provider Dextromethorphan-Guaife every 4 hours Jackie 06/09/2019 lorraine Vasquez M.D. 20-400mg Tablets Methylphenidate one po daily in 30tabs F41.9 Jackie Bell MD 05/30/2019 Hydrochloride ER Am 54mg Tablets ER 24HR Topiramate 2 tabs by mouth 180tabs Edd Shaffer 01/28/2018 50mg Tablets 2x/day Grover Patterson.,FACP Tizanidine HCL take 1 tablet 30tabs S39.012A Jackie Bell MD 10/26/2017 4mg Tablets by mouth three times a day as needed Percocet 1 tab every 8h 80tabs M51.16 Jackie Bell MD 02/22/2017 5-325mg Tablets as needed Alprazolam take 1 tablet 90tabs Jackie Bell MD 02/03/2017 0.25mg Tablets by mouth three times a day as needed for anxiety Zoloft take 2 tabs by 135tabs F41.0 Jackie Bell MD 01/13/2017 100mg Tablets mouth every day Ciprofloxacin HCL 1-2 drop eyes Unknown 0.3% every 2 hours Solution while awake for 2 days then every 4 hour x 5 days Albuterol Sulfate HFA two puffs - 4 Unknown times a day as 108(90Base) mcg/Act needed Aerosol Immunizations Description No Information Available Vital Signs Date Vital Result Comment 06/09/2019 1:56pm Height 66.5 inches 5'6.50" Weight 173.00 lb Heart Rate 64 /min BP Systolic 114 mmHg BP Diastolic 69 mmHg Body Temperature 97.0 F has been taking ibuprofen every 6hrs O2 % BldC Oximetry 97 % BMI (Body Mass Index) 27.5 kg/m2 05/30/2019 10:02am Height 66.5 inches 5'6.50" Weight 170.25 lb Heart Rate 78 /min BP Systolic 120 mmHg BP Diastolic 84 mmHg Body Temperature 97.9 F O2 % BldC Oximetry 98 % BMI (Body Mass Index) 27.1 kg/m2 Results Test Date Facility Test Result H/L Range Note Urine Culture And 04/03/2019 [facility] Urine SEE RESULT 1 , [address] [address] [phone] Poc Urinalysis 04/03/2019 [facility] Poc Glucose, Negative Negative [address] [place] [address] [phone] Poc Bilirubin, Urine Negative Negative Poc Ketone, Urine Negative Negative Poc Specific [place], Urine <= 1.005 Low 1.010-1.030 Poc Blood, Urine Negative Negative Poc pH, Urine 5.5 Normal 5-9 Poc Protein, Urine Negative Negative Poc Urobilinogen, Urine 0.2 Negative Poc Nitrite, Urine Negative Negative Poc Leukocytes, Urine Negative Negative Poc Color, Urine Light yellow Poc Clarity, Urine Slightly Cloudy 3 1 [id number] 2 SEE RESULT BELOW Name: KYLE DARRICKREBECCA FLORES : [address]: Jude Raya MD Acct: [id number] Unit: [id number] AGE: 43 Location: [facility] Re04/03/19 SEX: F Status: DEP ER SPEC: [id number] BETH: 04/03/[address] [facility] [address]: Jude Raya MD REQ: [id number] RECD: 04/04/19 STATUS: TRAVIS CUMMINGS DR: Jackie Bell MD _ SOURCE: URINE SPDESC: ORDERED: Urine Culture COMMENTS: [id number] Procedure Result Reported Site Urine Culture Final 04/05/19- 08 ML No Growth (<1,000 CFU/mL) * ML - Main Lab . END OF REPORT DEPARTMENT OF PATHOLOGY, [address] [place] [address] Chucky Bowden M.D. Director [facility] # [id number] 3 Software Developer Consultant: None Procedures Date Code Description Status 08/12/2017 [id number] Mammogram Completed Medical Devices Description No Information Available Encounters Type Date Location Provider Dx Diagnosis Office Visit 05/30/2019 [facility] Internal Jackie Bell MD Z00.00 Encntr for general 10:00 Medicine - [facility] adult medical exam w/o abnormal findings M54.5 Low back pain F17.210 Nicotine dependence, cigarettes, uncomplicated Q60.0 Renal agenesis, unilateral F90.0 Attn-defct hyperactivity disorder, predom inattentive type F41.9 Anxiety disorder, unspecified Z12.31 Encntr screen mammogram for malignant neoplasm of breast Assessments Date Code Description Provider 06/09/2019 R05 Efe Vasquez M.D. 05/30/2019 Z00.00 Encounter for general adult medical Jackie Bell MD examination without abnormal findings 05/30/2019 M54.5 Low back pain Jackie Bell MD 05/30/2019 F17.210 Nicotine dependence, cigarettes, Jackie Bell MD uncomplicated 05/30/2019 Q60.0 Renal agenesis, unilateral Jackie Bell MD 05/30/2019 F90.0 Attention-deficit hyperactivity disorder, Jackie Bell MD predominantly inattentive type 05/30/2019 F41.9 Anxiety disorder, unspecified Jackie Bell MD 05/30/2019 Z12.31 Encounter for screening mammogram for Jackie Bell MD malignant neoplasm of breast Plan of Treatment Future Appointment(s):01/09/2020 8:00 am - Jackie Bell MD at [facility] Internal Medicine [facility]06/09/2019 - Jackie Vasquez M.D.R05 CoughComments:Honey and lemonStay on the guaifenesinContinue inhaler as neededHold on further taper of Percocet until betterWe call you with result of the XrayIt's great that you're not smoking! Functional Status Description No Information Available Mental Status Description No Information Available Referrals Refer to Reason for Referral Status Appt Date Janett Bustamante MD Please evaluate patient with chronic low back Sent 0000 /0000 pain with Left leg sciatica, essentially normal spinal x-ray except for straightening of lordosis and mild DDD. She was started on opiates by her previous PCP and responded well to aqua therapy but could not sustain terminal supervisor. MRI was denied by insurance last year. She has congenital renal agenesis so cannot take terminal supervisor NSAIDs [address] [place] [address] [phone]
--- OUTSIDE RECORDS SUMMARY | 2019-08-05 16:32 | XMS REPORT | Continuity of Care Document ---
:1975 External Reference #:[id number] Author Name Jessie Pappas N.P. (transmitted by agent of provider Latoya Mcguire) Address [address], [place] [address] Care Team Providers Name Role Phone Ladi Vaz NPP - Psych/Mental Care Team Information Drier Operator [facility] Jackie Bell M.D. - Family Medicine Care Team Information Drier Operator Problems Active Problems Provider Date Bipolar II [...] cigs/day than 10 cigarettes/day) Smoking Status Reviewed: 06/14/19 Heavy tobacco smoker (more 15 cigs/day than [...] Medications SIG Qnty Indications Ordering Date Provider Levofloxacin one by mouth daily 10tabs J01.90 Jessie Varpetar, 06/14/2019 500mg for 10 days N.P. Tablets Prednisone 3 tabs daily for 5 18tabs J01.90 Jessie Varn, 06/14/2019 20mg Tablets days, then 2 N.P. tablets for a day, then 1 tablet for a day, then stop Benzonatate one by mouth three 30caps J01.90 Jessie Varn, 06/14/2019 200mg times daily as N.P. Capsules needed for cough Dextromethorphan-Guaif every 4 hours Jackie 06/09/2019 nilson Vasquez M.D. 20-400mg Tablets Symbicort 2 inhalations 6gm Jackie 06/09/2019 160-4.5mcg/Act twice daily Barby Vasquez Aerosol Methylphenidate one po daily in Am 30tabs F41.9 Jackie Bell MD 05/30/2019 Hydrochloride ER 54mg Tablets ER 24HR Topiramate 2 tabs by mouth 180tabs Edd Shaffer 01/28/2018 50mg Tablets 2x/day Barby Patterson,FACP Tizanidine HCL take 1 tablet by 30tabs S39.012A Jackie Bell MD 10/26/2017 4mg mouth three times Tablets a day as needed Percocet 1 tab every 8h as 80tabs M51.16 Jackie Bell MD 02/22/2017 5-325mg Tablets needed Alprazolam take 1 tablet by 90tabs Jackie Bell MD 02/03/2017 0.25mg Tablets mouth three times a day as needed [...] Available Vital Signs Date Vital Result Comment 06/14/2019 11:37am Height 66.5 inches 5'6.50" Weight 174.00 lb Heart Rate 65 /min BP Systolic 115 mmHg BP Diastolic 72 mmHg Body Temperature 97.8 F O2 % BldC Oximetry 97 % BMI (Body Mass Index) 27.7 kg/m2 06/09/2019 1:56pm Height 66.5 inches 5'6.50" Weight 173.00 lb Heart Rate 64 /min BP Systolic 114 mmHg BP Diastolic 69 mmHg Body Temperature 97.0 F has been taking ibuprofen every 6hrs O2 % BldC Oximetry 97 % BMI (Body Mass Index) 27.5 kg/m2 Results Test Acquired Date Facility Test Result H/L Range Note Urine Culture And 04/03/2019 [facility] Urine SEE RESULT 1 , [address] [place] [address] [phone] Poc Urinalysis 04/03/2019 [facility] Poc Negative Negative [address] Glucose, [place] [address] Urine [phone] Poc Bilirubin, Urine Negative Negative Poc Ketone, Urine Negative Negative Poc Specific [place], Urine <= 1.005 Low 1.010-1.030 Poc Blood, Urine Negative Negative Poc pH, Urine 5.5 Normal 5-9 Poc Protein, Urine Negative Negative Poc Urobilinogen, Urine 0.2 Negative Poc Nitrite, Urine Negative Negative Poc Leukocytes, Urine Negative Negative Poc Color, Urine Light yellow Poc Clarity, Urine Slightly Cloudy 3 1 [id number] 2 SEE RESULT BELOW Name: REBECCA ODLAN : [address]: Jude Raya MD Acct: [id number] Unit: [id number] AGE: 43 Location: [facility] Re04/03/19 SEX: F Status: DEP ER SPEC: [id number] BETH: 04/03/19 [facility] [address]: Jude Raya MD REQ: [id number] RECD: 04/04/19 STATUS: TRAVIS CUMMINGS DR: Jackie Bell MD _ SOURCE: URINE SPDESC: ORDERED: Urine Culture COMMENTS: [id number] Procedure Result Reported Site Urine Culture Final 04/05/19- 0837 ML No Growth (<1,000 CFU/mL) * ML - Main Lab . END OF REPORT DEPARTMENT OF PATHOLOGY, [address] [place] [address] Chucky Bowden M.D. Director [facility] # [id number] 3 Hand Candle Dipper: None Procedures Date Code Description Status 08/12/2017 [id number] Mammogram Completed Medical Devices Description No Information Available Encounters Type Date Location Provider Dx Diagnosis Office Visit 06/09/2019 [facility] [place] Cough 2:[facility] Office [facility] 05/30/2019 [facility] Jackie Bell MD Z00.00 Encntr for 10:[facility] exam w/o abnormal findings M54.5 Low back pain F17.210 Nicotine dependence, cigarettes, uncomplicated Q60.0 Renal agenesis, unilateral F90.0 Attn-defct hyperactivity disorder, predom inattentive type F41.9 Anxiety disorder, unspecified Z12.31 Encntr screen mammogram for malignant neoplasm of breast Assessments Date Code Description Provider 06/14/2019 J01.90 Acute sinusitis, unspecified Jessie Pappas, N.P. 06/09/2019 R05 Cough Jackie Vasquez M.D. 05/30/2019 Z00.00 Encounter for general [...] 8:00 am - Jackie Bell MD at [facility] - Jessie Pappas N.P.J01.90 Acute sinusitis, unspecifiedNew Medication:Levofloxacin 500 mg - one by mouth daily for 10 daysPrednisone 20 mg - 3 tabs daily for 5 days, then 2 tablets for a day, then 1 tablet for a day, then stopBenzonatate 200 mg - one by mouth three times daily as needed for coughComments:For your sinus and ear infection: I have prescribed a course of Levaquin 500 mg, take 1 tablet dailyfor 10 days.I have prescribed a course of Prednisone.To help your cough I have prescribed Benzonatate 200 mg, you can take 1 tablet every 8 hours.If your symptoms do not improve call the office. 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 MRI was denied by insurance last year. She has congenital renal agenesis so cannot take machine long goods helper NSAIDs Pt has to call and schedule, lvm letting her know [address] [place] [id number] [phone]
[2019-08-05] MEDS ORDERED: Morphine 4 MG/ML VIAL (1 ml) 4 MG/ML VIAL IV ONE (16:53)
[2019-08-05] MEDS ORDERED: HYDROmorphone INJ* 0.5 MG/0.5 ML SYRINGE IV ONE (17:27)
[2019-08-05 18:47] VITALS: BP 133/85
== END 2019-08-05 18:46 | disposition home or self-care (01) ==
LOC: ED 15:23
DX: M54.5 Low back pain (principal); G89.29 Other chronic pain; F41.9 Anxiety disorder, unspecified; F32.9 Major depressive disorder, single episode, unspecified; F17.210 Nicotine dependence, cigarettes, uncomplicated
CPT/HCPCS: 96374; 96375; 99282; A9270-GY; J1170; J2270; J7512